=== PATIENT | female | born 1985 | race Caucasian/White ===

== ENCOUNTER 2025-08-13 08:27 | Outpatient (CLI) | payer OTHER | END 2025-08-13 08:28 | disposition home or self-care (01) | LOC: CSHMAMMO 08:27 | PROVIDERS: ATTEND Family Medicine | DX: Z12.31 Encounter for screening mammogram for malignant neoplasm of breast (principal); N64.89 Other specified disorders of breast | CPT/HCPCS: 77063; 77067 ==

== ENCOUNTER 2025-08-20 08:49 | Outpatient (CLI) | payer OTHER | END 2025-08-20 08:50 | disposition home or self-care (01) | LOC: CSHMAMMO 08:49 | PROVIDERS: ATTEND Family Medicine | DX: N64.89 Other specified disorders of breast (principal) | CPT/HCPCS: G0279 ==